=== PATIENT | female | born 1960 | race Caucasian/White ===

== ENCOUNTER 2019-11-19 05:01 | Inpatient (IN) ==
[2019-11-14 13:55] LABS: Appearance,Urine CLEAR; Bilirubin,Urine NEG (NEG); Color,Urine STRAW; Culture Indicated,Urine NO; Glucose,Urine (UA) NEGATIVE (NEG); Ketones,Urine NEG (NEG); Leukocyte Esterase,Urine NEG /uL (NEG); Nitrate,Urine NEG (NEG); Protein,Urine NEG (NEG); Specific Gravity,Urine 1.006 (1.000-1.035); Urine Blood NEG mg/dL (<0.03); Urobilinogen,Urine NEG (NEG)
[2019-11-14 14:03] LABS: Basophils # (Auto) 0.03 K/mcL (0.00-0.30); Basophils % (Auto) 0.6 % (0.0-2.0); Eosinophils # (Auto) 0.04 K/mcL (0.00-0.70); Eosinophils % (Auto) 0.8 % (0.0-7.0); Granulocytes % (Auto) 57.7 % (38.0-78.0); Hematocrit 39.1 % (34.1-44.9); Hemoglobin 12.7 g/dL (11.2-15.7); Lymphocytes # (Auto) 1.64 K/mcL (1.50-4.80); Lymphocytes % (Auto) 32.9 % (15.5-49.0); Mean Cell Volume 93.1 fL (80.0-100.0); Mean Corpuscular HGB Conc 32.5 g/dL (31.0-36.0); Platelet Count 260 K/mcL (140-440); Red Cell Distribution Width 12.4 % (11.5-14.5)
[2019-11-14 14:17] LABS: Blood Urea Nitrogen 17 mg/dl (8-23); Calcium 9.8 mg/dl (8.6-10.4); Carbon Dioxide 26 mmol/L (22-30); Chloride 102 mmol/L (96-108); Glomerular Filtration Rate 94; Glucose 98 mg/dL (70-105)
[~2019-11-19 05:01] MED LIST: IPRATROPIUM/ALBUTEROL 3 ML AMPUL.NEB NEB PRN; SCOPOLAMINE 1 PATCH PATCH TOPICAL PRN
[2019-11-19] MEDS ORDERED: oxyCODONE 10 MG TAB.ER.12H PO SCH (06:00)
[2019-11-19] MEDS ORDERED: PREGABALIN 75 MG CAPSULE PO SCH (06:00)
[2019-11-19] MEDS ORDERED: ACETAMINOPHEN 500 MG TABLET PO SCH (06:00)
[2019-11-19] MEDS ORDERED: 0.9 % SODIUM CHLORIDE 9 ML, KETOROLAC 30 MG, ROPIVACAINE HCL/PF 49.5 ML, EPINEPHrine 0.... IJ SCH (06:00)
[2019-11-19] MEDS ORDERED: CELECOXIB 200 MG CAPSULE PO SCH (06:00)
[2019-11-19] MEDS ORDERED: VANCOMYCIN 1,500 MG in 0.9 % SODIUM CHLORIDE 500 ML IV SCH (06:15)
[2019-11-19] MEDS ORDERED: GENTAMICIN SULFATE 800 MG/20 ML VIAL IR ONE (07:02)
[2019-11-19] MEDS ORDERED: TRANEXAMIC ACID 1,000 MG/10 ML VIAL IV ONE ×2 (07:35→08:53)
[2019-11-19] MEDS ORDERED: ROPIVACAINE HCL/PF 20 ML VIAL IJ ONE (07:35)
[2019-11-19] MEDS ORDERED: DEXAMETHASONE 10 MG/ML VIAL IV ONE (07:35)
[2019-11-19] MEDS ORDERED: GLYCOPYRROLATE 0.2 MG/ML VIAL IV ONE (07:35)
[2019-11-19] MEDS ORDERED: LIDOCAINE HCL/PF 100 MG/5 ML SYRINGE IV ONE (07:35)
[2019-11-19] MEDS ORDERED: MIDAZOLAM 2 MG/2 ML VIAL IV ONE (07:35)
[2019-11-19] MEDS ORDERED: KETAMINE 100 MG/ML ML IV ONE (07:35)
[2019-11-19] MEDS ORDERED: PHENYLEPHRINE 10 MG/ML VIAL IV ONE (07:35)
[2019-11-19] MEDS ORDERED: ONDANSETRON 4 MG/2 ML VIAL IV ONE (07:35)
[2019-11-19] MEDS ORDERED: PROPOFOL 200 MG/20 ML VIAL IV ONE (07:35)
[2019-11-19] MEDS ORDERED: ePHEDrine 50 MG/ML AMPUL IV ONE (07:35)
[2019-11-19] MEDS ORDERED: BUPIVACAINE 0.5% 50 ML VIAL IJ ONE (08:08)
[2019-11-19] MEDS ORDERED: DEXAMETHASONE 10 MG/ML VIAL IM ONE (08:08)
[2019-11-19] MEDS ORDERED: TRIAMCINOLONE ACETONIDE 40 MG/ML VIAL IM ONE (08:09)
[2019-11-19] MEDS ORDERED: IPRATROPIUM/ALBUTEROL 3 ML AMPUL.NEB NEB PRN (08:38)
[2019-11-19] MEDS ORDERED: PROMETHAZINE 25 MG/ML VIAL IV PRN (08:38)
[2019-11-19] MEDS ORDERED: METHOCARBAMOL 1,000 MG/10 ML VIAL IV PRN (08:38)
[2019-11-19] MEDS ORDERED: MEPERIDINE 25 MG/ML SYRINGE IV PRN (08:38)
[2019-11-19] MEDS ORDERED: ONDANSETRON 4 MG/2 ML VIAL IV PRN ×2 (08:38→08:53)
[2019-11-19] MEDS ORDERED: LACTATED RINGERS 1,000 ML IV SCH (08:45)
[2019-11-19] MEDS ORDERED: POLYETHYLENE GLYCOL 3350 17 GM PACKET PO PRN (08:53)
[2019-11-19] MEDS ORDERED: BISACODYL 10 MG SUPP.RECT PR PRN (08:53)
[2019-11-19] MEDS ORDERED: FLEETS ADULT ENEMA PR PRN (08:53)
[2019-11-19] MEDS ORDERED: ACETAMINOPHEN 325 MG TABLET PO PRN (08:53)
[2019-11-19] MEDS ORDERED: MAGNESIUM HYDROXIDE 30 ML ORAL.SUSP PO PRN (08:53)
[2019-11-19] MEDS ORDERED: TEMAZEPAM 15 MG CAPSULE PO PRN (08:53)
[2019-11-19] MEDS ORDERED: BENZOCAINE/MENTHOL 1 LOZENGE PO PRN (08:53)
--- NOTE | 2019-11-19 08:53 | Brief Operative Note ---
Date of procedure: 11/19/19 Pre-op diagnosis: Right knee djd severe Post-op diagnosis: same Procedure: Right Total knee and injection of the left knee Grafts/Implants: Yes Anesthesia: ANDREAS Surgeon: Usama Burgess In File Operator: Bryson Cortez Estimated blood loss (cc): 50 Tourniquet Time (Minutes): 40 Specimens Removed/Pathology: none sent Condition: stable Disposition: PACU
[2019-11-19] MEDS ORDERED: ZOLPIDEM 5 MG TABLET PO PRN (09:00)
[2019-11-19] MEDS ORDERED: ceFAZolin 1 GM VIAL IV SCH (09:00)
--- NOTE | 2019-11-19 09:21 | Operative Note ---
DATE OF OPERATION: 11/19/2019 PREOPERATIVE DIAGNOSES: 1. Right knee degenerative arthritis. 2. Left knee degenerative arthritis. POSTOPERATIVE DIAGNOSES: 1. Right knee degenerative arthritis. 2. Left knee degenerative arthritis. PROCEDURE: 1. Right total knee arthroplasty. 2. Aspiration and injection of the left knee. SURGEON: Usama Burgess M.D. MOLD YARD CRANE OPERATOR: Bryson Cortez PA-C. The PA's assistance was required for the safe and efficient completion of the entire case. This provider's expertise and technical skill were required throughout the case. The PA assisted with preoperative coordination, intraoperative retraction, wound closure, dressing and splint application, as well as postoperative documentation and care coordination. ANESTHESIA: General LMA anesthesia. COMPLICATIONS: None. DESCRIPTION OF PROCEDURE: The patient was brought to the operating room and put to sleep with general LMA anesthesia. Once asleep, the left leg was sterilely prepped. I then aspirated the left knee under sterile conditions from a superior lateral approach, aspirating 20 mL of clear synovial fluid, then injected 1 mL of Kenalog, 1 mL of Decadron, and 4 mL of Carbocaine. Once this was done, we then sterilely prepped and draped the right leg. A time out was performed. We confirmed this as the operative site by initials, consent form, and x-rays. Once done, preoperative antibiotics and tranexamic acid had been given. We made a midline incision through the [place] to protect it from the operative field. A midvastus approach was performed. This showed severe wear of the patellofemoral joint, as well as the medial compartment. The patient had about 2 degrees of flexion contracture, where her opposite leg had a recurvatum. We then repositioned the implants to accommodate the ligamentous laxity and to align the implant perfectly. Once this was done, we brought the robot in and cut the bony surfaces away. Once done, we were able to then trial the components, which was a size 4 femur, a size 3 tibial baseplate, and a 9 mm poly insert. This brought us back to her preoperative plan. Ligaments were tight throughout. The patella tracked very well. Her patella had worn so severely that it was down to about 17 mm in total thickness. This was cut to 13 mm and we restored 22 mm of thickness, which was her anatomy prior. We irrigated thoroughly. We then cemented into place the size 4 femur, the size 3 tibial baseplate with a size 9 insert. The patient tolerated this well without complication. Tourniquet was deflated at 40 minutes. Blood loss about 50 mL. No significant bleeding encountered. Post-inject formula was placed within the posterior capsule. The patient tolerated this well. There was no complication. We closed the midvastus approach with #1 Stratafix, closed the skin with Stratafix and adhesive closure. The patient tolerated this well. There were no complications. RBHans:vijay Job ID: [id number] Doc ID: [id number] Usama Burgess MD
[2019-11-19] MEDS: fentaNYL 100 MCG/2 ML VIAL IV PRN ×4 (09:30→09:48)
--- NOTE | 2019-11-19 09:51 | XRay Report ---
CLINICAL INFORMATION: Post-Op Total Knee COMPARISON: None. FINDINGS: Total knee prostheses is anatomically aligned. No osseous abnormality. Periarticular gas and soft tissue swelling seen - as expected. IMPRESSION: Negative Interpreted and Authenticated by: Velasquez Gamboa 11/19/19
[2019-11-19] MEDS: LACTATED RINGERS 1,000 ML IV SCH ×2 (10:21→21:51)
--- NOTE | 2019-11-19 10:50 | Discharge Summary ---
Ortho Discharge - TKA - Patient Instructions Diet: Regular Diet Activity: activity as tolerated, weight bearing as tolerated Total Knee Protocol: For Total Knee: Start ROM JANEL with stationary bike or rocking chair. Work on gaining full extension of knee. Posterior dislocation precautions provided. Hip abductor strengthening and gait training instructions provided. Apply Cryocuff as instructed. Dressing Care: May shower in 2 days - Follow Up Plan Follow Up Appointments: Bryson Cortez PA-C [Physician Cath Lab Nurse] - 12/04/19 8:40 am Disposition: Home, Self-Care Prognosis: Good Rehab Potential: Good I certify that the patient requires SNF services: No Overall status at discharge: patient is progressing back to baseline - Orders For Discharge Prescriptions: Docusate Sodium [Colace] 100 mg PO BID #60 cap Transmission Status: Pending to [facility] Aspirin [Ecotrin] 325 mg PO BID #60 tab.ec Transmission Status: Pending to [facility] oxyCODONE/APAP [Percocet 5-325 mg] 1 - 2 tab PO Q4HP PRN #75 tab PRN Reason: Pain Level 3-6 Prescription Printed
[2019-11-19] MEDS: KETOROLAC 15 MG/ML VIAL IV SCH ×3 (12:42→23:06)
[2019-11-19] MEDS: ASPIRIN 325 MG ENTERIC COATED TABLET PO SCH ×2 (12:43→19:37)
[2019-11-19] MEDS: DOCUSATE SODIUM 100 MG CAPSULE PO SCH ×2 (12:43→19:36)
[2019-11-19] MEDS: ASCORBIC ACID 500 MG TABLET PO SCH (12:43)
[2019-11-19] MEDS: CALCIUM (OYSTER SHELL) 500 MG TABLET PO SCH (12:44)
[2019-11-19] MEDS: LOSARTAN 50 MG TABLET PO SCH (12:49)
[2019-11-19] MEDS: HYDROmorphone 2 MG/ML VIAL IV PRN (12:52)
[2019-11-19] MEDS: oxyCODONE/APAP 5/325MG TABLET PO PRN ×2 (15:14→19:37)
[2019-11-19] MEDS: 0.9 % SODIUM CHLORIDE 10 ML SYRINGE IV SCH ×2 (15:15→23:07)
[2019-11-19] MEDS ORDERED: VANCOMYCIN 1,500 MG in 0.9 % SODIUM CHLORIDE 500 ML IV ONE (19:00)
[2019-11-19] MEDS ORDERED: SENNOSIDES 1 TABLET PO SCH (21:00)
[2019-11-20] MEDS: oxyCODONE/APAP 5/325MG TABLET PO PRN ×4 (01:14→13:48)
[2019-11-20] MEDS: KETOROLAC 15 MG/ML VIAL IV SCH ×2 (06:07→13:50)
[2019-11-20] MEDS: 0.9 % SODIUM CHLORIDE 10 ML SYRINGE IV SCH ×2 (06:08→18:18)
[2019-11-20] MEDS: LACTATED RINGERS 1,000 ML IV SCH (06:08)
[2019-11-20] MEDS ORDERED: MULTIVIT,THER IRON,CA,FA & MIN 1 TABLET PO SCH (09:00)
[2019-11-20] MEDS ORDERED: CITALOPRAM 20 MG TABLET PO SCH (09:00)
[2019-11-20] MEDS: ASCORBIC ACID 500 MG TABLET PO SCH (09:55)
[2019-11-20] MEDS: ASPIRIN 325 MG ENTERIC COATED TABLET PO SCH (09:55)
[2019-11-20] MEDS: LOSARTAN 50 MG TABLET PO SCH (09:55)
[2019-11-20] MEDS: CALCIUM (OYSTER SHELL) 500 MG TABLET PO SCH (09:55)
[2019-11-20] MEDS: DOCUSATE SODIUM 100 MG CAPSULE PO SCH (09:56)
[2019-11-20] MEDS: HYDROmorphone 2 MG/ML VIAL IV PRN (13:49)
[2019-11-21] MEDS ORDERED: IBUPROFEN 200 MG TABLET PO PRN (09:00)
== END 2019-11-20 14:25 | disposition home or self-care (01) | DRG 470 ==
LOC: MEDSUR 05:01
PROVIDERS: ADMIT Orthopaedic Surgery; ATTEND Orthopaedic Surgery

== ENCOUNTER 2020-01-21 04:58 | Inpatient (IN) ==
[2020-01-15 12:23] LABS: Basophils # (Auto) 0.03 K/mcL (0.00-0.30); Basophils % (Auto) 0.6 % (0.0-2.0); Eosinophils # (Auto) 0.09 K/mcL (0.00-0.70); Eosinophils % (Auto) 1.9 % (0.0-7.0); Granulocytes % (Auto) 61.2 % (38.0-78.0); Hemoglobin 12.3 g/dL (11.2-15.7); Lymphocytes # (Auto) 1.38 K/mcL (1.50-4.80); Lymphocytes % (Auto) 28.5 % (15.5-49.0); Mean Cell Volume 93.8 fL (80.0-100.0); Mean Corpuscular HGB Conc 32.4 g/dL (31.0-36.0); Mean Platelet Volume 9.9 fL (7.4-10.4); Monocytes # (Auto) 0.38 K/mcL (0.10-0.90); Monocytes % (Auto) 7.8 % (1.0-12.0); Platelet Count 281 K/mcL (140-440); RBC 4.05 M/mcL (3.59-5.38); Red Cell Distribution Width 12.3 % (11.5-14.5); WBC 4.9 K/mcL (4.50-11.00)
[2020-01-15 12:34] LABS: Blood Urea Nitrogen 13 mg/dl (8-23); Calcium 9.4 mg/dl (8.6-10.4); Carbon Dioxide 28 mmol/L (22-30); Chloride 101 mmol/L (96-108); Glomerular Filtration Rate 94; Glucose 90 mg/dL (70-105)
[2020-01-15 13:16] LABS: Prothrombin Time 13.1 sec (11.9-14.5)
[2020-01-15 14:03] LABS: Appearance,Urine CLEAR; Bacteria,Urine 0 /hpf (0); Bilirubin,Urine NEG (NEG); Color,Urine STRAW; Culture Indicated,Urine NO; Glucose,Urine (UA) NEGATIVE (NEG); Ketones,Urine NEG (NEG); Leukocyte Esterase,Urine 75 /uL (NEG); Nitrate,Urine NEG (NEG); Protein,Urine NEG (NEG); Specific Gravity,Urine 1.009 (1.000-1.035); Urine Blood NEG mg/dL (<0.03); Urine RBC < 1 /hpf (0-1); Urine Squamous Epithelial Cell 2 /hpf (0-4); Urine Transitional Epi Cells 1 /hpf (0-2); Urine WBC 2 /hpf (0-4); Urobilinogen,Urine NEG (NEG)
[2020-01-21] MEDS ORDERED: SCOPOLAMINE 1 PATCH PATCH TOPICAL PRN (05:00)
[2020-01-21] MEDS ORDERED: IPRATROPIUM/ALBUTEROL 3 ML AMPUL.NEB NEB PRN ×2 (05:00→08:44)
[2020-01-21] MEDS ORDERED: 0.9 % SODIUM CHLORIDE 9 ML, KETOROLAC 30 MG, ROPIVACAINE HCL/PF 49.5 ML, EPINEPHrine 0.... IJ SCH (06:00)
[2020-01-21] MEDS ORDERED: ceFAZolin 2 GM in DEXTROSE 5% IN WATER 50 ML IV SCH (06:00)
[2020-01-21] MEDS ORDERED: oxyCODONE 10 MG TAB.ER.12H PO SCH (06:00)
[2020-01-21] MEDS ORDERED: ACETAMINOPHEN 500 MG TABLET PO SCH (06:00)
[2020-01-21] MEDS ORDERED: CELECOXIB 200 MG CAPSULE PO SCH (06:00)
[2020-01-21] MEDS ORDERED: PREGABALIN 75 MG CAPSULE PO SCH (06:00)
[2020-01-21 07:01] LABS: Appearance,Urine CLEAR; Bilirubin,Urine NEG (NEG); Color,Urine YELLOW; Culture Indicated,Urine NO; Glucose,Urine (UA) NEGATIVE (NEG); Ketones,Urine NEG (NEG); Leukocyte Esterase,Urine NEG /uL (NEG); Nitrate,Urine NEG (NEG); Protein,Urine NEG (NEG); Specific Gravity,Urine 1.017 (1.000-1.035); Urine Blood NEG mg/dL (<0.03); Urobilinogen,Urine NEG (NEG)
[2020-01-21] MEDS ORDERED: PHENYLEPHRINE 10 MG/ML VIAL IV ONE (07:45)
[2020-01-21] MEDS ORDERED: DEXAMETHASONE 10 MG/ML VIAL IV ONE (07:45)
[2020-01-21] MEDS ORDERED: ePHEDrine 50 MG/ML AMPUL IV ONE (07:45)
[2020-01-21] MEDS ORDERED: TRANEXAMIC ACID 1,000 MG/10 ML VIAL IV ONE ×2 (07:45→09:04)
[2020-01-21] MEDS ORDERED: KETAMINE 100 MG/ML ML IV ONE (07:45)
[2020-01-21] MEDS ORDERED: PROPOFOL 200 MG/20 ML VIAL IV ONE (07:45)
[2020-01-21] MEDS ORDERED: GLYCOPYRROLATE 0.2 MG/ML VIAL IV ONE (07:45)
[2020-01-21] MEDS ORDERED: ONDANSETRON 4 MG/2 ML VIAL IV ONE (07:45)
[2020-01-21] MEDS ORDERED: LIDOCAINE HCL/PF 100 MG/5 ML SYRINGE IV ONE (07:45)
[2020-01-21] MEDS ORDERED: ROPIVACAINE HCL/PF 20 ML VIAL IJ ONE (07:45)
[2020-01-21] MEDS ORDERED: GENTAMICIN SULFATE 800 MG/20 ML VIAL IR ONE (08:03)
[2020-01-21] MEDS ORDERED: HYDROmorphone 2 MG/ML VIAL IV PRN ×2 (08:44→09:04)
[2020-01-21] MEDS ORDERED: ATROPINE SULFATE 0.4 MG/ML VIAL IV PRN (08:44)
[2020-01-21] MEDS ORDERED: ONDANSETRON 4 MG/2 ML VIAL IV PRN ×2 (08:44→09:04)
[2020-01-21] MEDS ORDERED: fentaNYL 100 MCG/2 ML VIAL IV PRN (08:44)
[2020-01-21] MEDS ORDERED: diphenhydrAMINE 50 MG/ML VIAL IV PRN (08:44)
[2020-01-21] MEDS ORDERED: NALOXONE HCL 0.4 MG/ML VIAL IV PRN (08:44)
[2020-01-21] MEDS ORDERED: PROMETHAZINE 25 MG/ML VIAL IV PRN (08:44)
[2020-01-21] MEDS ORDERED: METHOCARBAMOL 1,000 MG/10 ML VIAL IV PRN (08:44)
[2020-01-21] MEDS ORDERED: METOPROLOL TARTRATE 5 MG/5 ML VIAL IV PRN (08:44)
[2020-01-21] MEDS ORDERED: MEPERIDINE 25 MG/ML SYRINGE IV PRN (08:44)
[2020-01-21] MEDS ORDERED: ePHEDrine 50 MG/ML AMPUL IV PRN (08:44)
[2020-01-21] MEDS ORDERED: ACETAMINOPHEN 325 MG TABLET PO PRN (09:04)
[2020-01-21] MEDS ORDERED: BENZOCAINE/MENTHOL 1 LOZENGE PO PRN (09:04)
[2020-01-21] MEDS ORDERED: MAGNESIUM HYDROXIDE 30 ML ORAL.SUSP PO PRN (09:04)
[2020-01-21] MEDS ORDERED: TEMAZEPAM 15 MG CAPSULE PO PRN (09:04)
[2020-01-21] MEDS ORDERED: BISACODYL 10 MG SUPP.RECT PR PRN (09:04)
[2020-01-21] MEDS ORDERED: FLEETS ADULT ENEMA PR PRN (09:04)
[2020-01-21] MEDS ORDERED: POLYETHYLENE GLYCOL 3350 17 GM PACKET PO PRN (09:04)
--- NOTE | 2020-01-21 09:04 | Brief Operative Note ---
Date of procedure: 01/21/20 Pre-op diagnosis: Left knee djd severe Post-op diagnosis: same Procedure: Left tka with bharat Grafts/Implants: Yes Anesthesia: GETA Complications: none Surgeon: Usama Burgess Production Shift Supervisor: Bryson Cortez Estimated blood loss (cc): 20 Tourniquet Time (Minutes): 40 Specimens Removed/Pathology: none sent Condition: stable Disposition: PACU
[2020-01-21] MEDS ORDERED: LORATADINE 10 MG TABLET PO PRN (09:07)
--- NOTE | 2020-01-21 10:17 | Operative Note ---
DATE OF OPERATION: 01/21/2020 PREOPERATIVE DIAGNOSIS: Left knee degenerative arthritis, severe. POSTOPERATIVE DIAGNOSIS: Left knee degenerative arthritis, severe. PROCEDURE: Left total knee arthroplasty with the Patrice robot. SURGEON: Usama Burgess MD CIRCULATION TENDER: Bryson Cortez PA-C. This provider's expertise and technical skill were required throughout the case. The CYNDEE assisted with preoperative coordination, intraoperative retraction, wound closure, dressing and splint application, as well as postoperative documentation and care coordination. ANESTHESIA: General LMA anesthesia. COMPLICATIONS: None. TOTAL TOURNIQUET TIME: Approximately 45 minutes. ESTIMATED BLOOD LOSS: About 20 mL IMPLANTS: Per nurse's note. Poly liner was a size 10 in thickness, 33 mm patellar button. DESCRIPTION OF PROCEDURE: The patient was brought to the operating room and put to sleep with general LMA anesthesia. Once asleep, the patient had the left knee sterilely prepped and draped. A timeout had been performed confirming the operative site by initials, consent form and x-rays. A midline incision was made and a midvastus approach performed. We placed two pins above and below the knee for the Patrice robot. We registered the center of hip rotation, registered the medial and lateral malleoli. We were able to then expose the joint and measured the implant. We balanced the knee in flexion and extension and also were able to register the robot. Once we balanced the knee perfectly from the CT scan and the preoperative plan, we brought the robot in and made the bony cuts without complication. We preserved the posterior crucial ligament and then we tapped into place the trials. These fit very nicely. The patella measured a total thickness of 20 mm. This was cut to 12 mm thickness and we cemented into place a 33 mm patellar button. We cemented into place the femur and the tibial baseplate and a 10 mm cruciate posterior stabilized poly liner. The patient tolerated this well. We irrigated thoroughly. We took the knee through the range of motion. We closed the midvastus approach with #1 Stratafix x2, closed the skin with Stratafix and adhesive closure. The patient tolerated this well without complication. RBH:oseas Job ID: [id number] Doc ID: [id number] Usama Burgess MD
--- NOTE | 2020-01-21 10:21 | XRay Report ---
CLINICAL INFORMATION: Post-Op Total Knee COMPARISON: Preoperative film 2019 FINDINGS: Total knee prostheses is anatomically aligned. No osseous abnormality. Gas and swelling of soft tissues seen as expected IMPRESSION: Negative Interpreted and Authenticated by: Velasquez Gamboa 01/21/20
[2020-01-21] MEDS: LACTATED RINGERS 1,000 ML IV SCH ×4 (10:28→19:37)
--- NOTE | 2020-01-21 10:44 | Discharge Summary ---
Ortho Discharge - TKA - Patient Instructions Diet: Regular Diet Activity: activity as tolerated, weight bearing as tolerated Total Knee Protocol: For Total Knee: Start ROM JANEL with stationary bike or rocking chair. Work on gaining full extension of knee. Posterior dislocation precautions provided. Hip abductor strengthening and gait training instructions provided. Apply Cryocuff as instructed. Dressing Care: May shower in 2 days - Follow Up Plan Follow Up Appointments: Bryson Cortez PA-C [Physician Software Licensing Specialist] - 02/07/20 10:50 am Disposition: Home, Self-Care Prognosis: Good Rehab Potential: Good I certify that the patient requires SNF services: No Overall status at discharge: patient is progressing back to baseline - Orders For Discharge Prescriptions: Docusate Sodium [Colace] 100 mg PO BID #60 cap Transmission Status: Pending to [facility] Aspirin [Ecotrin] 325 mg PO BID #60 tab.ec Transmission Status: P[facility] to [facility] HYDROcodone/APAP 10/325MG [[place] 10-325Mg] 1 - 2 tab PO Q4HP PRN #75 tab PRN Reason: Pain Level 3-6 Prescription Printed
[2020-01-21] MEDS: KETOROLAC 15 MG/ML VIAL IV SCH ×3 (11:18→23:29)
[2020-01-21] MEDS: HYDROcodone/APAP 10/325MG TABLET PO PRN (12:50)
[2020-01-21] MEDS: 0.9 % SODIUM CHLORIDE 10 ML SYRINGE IV SCH ×2 (15:11→21:41)
[2020-01-21] MEDS: ceFAZolin 1 GM VIAL IV SCH ×2 (15:51→23:28)
[2020-01-21] MEDS ORDERED: SENNOSIDES 1 TABLET PO SCH (21:00)
[2020-01-21] MEDS: DOCUSATE SODIUM 100 MG CAPSULE PO SCH (21:26)
[2020-01-21] MEDS: ASPIRIN 325 MG ENTERIC COATED TABLET PO SCH (21:26)
[2020-01-22] MEDS: HYDROcodone/APAP 10/325MG TABLET PO PRN ×3 (03:30→12:17)
[2020-01-22] MEDS: LACTATED RINGERS 1,000 ML IV SCH (04:58)
[2020-01-22] MEDS: KETOROLAC 15 MG/ML VIAL IV SCH ×3 (05:03→12:22)
[2020-01-22] MEDS: 0.9 % SODIUM CHLORIDE 10 ML SYRINGE IV SCH (05:03)
--- NOTE | 2020-01-22 07:38 | Orthopedic Progress Note ---
Subjective Patient information: Note initiated : 01/22/20 at 7:37 am Service Date, if different from initiated Date: [] Patient: Michelle Weber 59 y/o F admitted on 01/21/20 for Left Total Knee Arthroplasty Patrice . Chief Complaint: [Pt is stable this morning on post operative day 1 without any significant concerns or complaints. Patients vital signs have remained stable. Patients dressing is dry and is grossly intact from a neurovascular and motor standpoint. Patients 10 point ROS is otherwise negative. ] Objective Vital signs: Vital Signs Temp Pulse Resp BP Pulse Ox 01/22/20 07:20 98.1 F 70 14 153/80 97 01/22/20 03:30 98.3 F 68 12 149/70 97 01/22/20 01:00 93 01/21/20 23:30 98.5 F 85 12 138/73 93 01/21/20 19:07 97.9 F 81 12 130/66 95 01/21/20 15:53 97.7 F 78 20 147/67 95 01/21/20 12:45 90 132/70 96 01/21/20 11:45 86 18 127/70 97 01/21/20 11:15 86 18 133/72 98 01/21/20 11:00 91 H 16 134/66 97 01/21/20 10:45 93 H 16 134/70 98 01/21/20 10:30 103 H 16 145/67 98 01/21/20 10:15 96.8 F L 98 H 16 133/73 97 01/21/20 10:00 98.8 F 110 H 18 159/65 98 01/21/20 09:55 113 H 14 156/66 97 01/21/20 09:50 114 H 17 153/62 96 01/21/20 09:45 113 H 13 149/65 100 01/21/20 09:40 113 H 13 145/61 95 01/21/20 09:35 109 H 13 155/53 93 01/21/20 09:30 97.7 F 98 H 12 138/62 95 Intake and Output 01/21/20 01/22/20 01/22/20 21:59 05:59 13:59 Intake Total 360 650 240 Output Total 2250 1950 Balance -1890 -1300 240 Intake: Oral 360 650 240 Output: Urine Catheter Amount 900 Straight 900 Void Amount 2250 1050 Other: Meal Dinner Percent of Meal Consumed 100% Feeding Ability Independent Urine Appearance Clear Clear Straight Clear Urine Color Bright Yellow Bright Yellow Straight Bright Yellow Urine Odor Normal Normal Weight 227 lb 3.2 oz Intake & Output: Intake & Output 01/21/20 01/22/20 01/22/20 21:59 05:59 13:59 Intake Total 360 650 240 Output Total 2250 1950 Balance -1890 -1300 240 Weight 227 lb 3.2 oz Intake: Oral 360 650 240 Output: Urine Catheter Amount 900 Straight 900 Void Amount 2250 1050 Other: Meal Dinner Percent of Meal Consumed 100% Feeding Ability Independent Urine Appearance Clear Clear Straight Clear Urine Color Bright Yellow Bright Yellow Straight Bright Yellow Urine Odor Normal Normal Incision: Yes healing Incision clean and dry: Yes Dressing: Yes clean Weight bearing status: full Neurological exam IM: Yes motor sensory intact, Yes neurovascular intact Extremities exam IM: Yes Foot pink and warm, Yes neurovascular intact - Labs CBC & BMP: 01/15/20 10:08 01/15/20 10:08 Labs: Orthopedic Labs 01/15/20 10:08 PT 13.1 INR 1.0 APTT 31 01/22/20 01/15/20 06:05 10:08 Hgb 12.3 Hct Pending 38.0 Assessment and Plan (1) Hx of total knee arthroplasty The patient has been educated regarding dressing care, Physical Therapy recommendations, home exercises, restrictions, and follow up appointments. The patient has had all necessary DME prescribed. The patient has remained relatively stable during their hospital course. Leave Dermabond patch intact un til followup Status: Acute
[2020-01-22] MEDS: DOCUSATE SODIUM 100 MG CAPSULE PO SCH (08:46)
[2020-01-22] MEDS: ASPIRIN 325 MG ENTERIC COATED TABLET PO SCH (08:47)
[2020-01-22] MEDS ORDERED: CITALOPRAM 20 MG TABLET PO SCH (09:00)
[2020-01-22] MEDS ORDERED: LOSARTAN 50 MG TABLET PO SCH (09:00)
[2020-01-23] MEDS ORDERED: LOSARTAN 50 MG TABLET PO SCH (09:00)
== END 2020-01-22 13:17 | disposition home or self-care (01) | DRG 470 ==
LOC: MEDSUR 04:58 → EDSTATUS 07:30
PROVIDERS: ADMIT Orthopaedic Surgery; ATTEND Orthopaedic Surgery